=== PATIENT | male | born 1980 | race Caucasian/White ===

== ENCOUNTER 2021-09-21 12:18 | Emergency (ER) | payer SELFPAY ==
[2021-09-21 12:26] VITALS: BP 109/84; PULSE 67; RESP 18; TEMP 36.1; O2SAT 97; BMI 22.9
--- NOTE | 2021-09-21 12:43 | ED.WOUNDLAC ---
HPI - Wound/Laceration General Time Seen by Provider: 12:35 Date Seen: 09/21/21 Chief Complaint: Laceration/Wound Stated Complaint: Deep laceration left forearm Time Seen by Provider: 09/21/21 12:23 Source: patient, family and RN notes reviewed Mode of arrival: ambulatory Limitations: no limitations History of Present Illness HPI narrative: Patient is a very pleasant 40-year-old male with history of up-to-date tetanus who comes to the emergency room with laceration on his left forearm. Patient notes that he was using a razor blade that he had just changed but had been using to cut an old hose when it slipped causing a laceration to the proximal volar forearm. He has no numbness or tingling and he has no change in his strength. He is otherwise a healthy gentleman. Onset (ago): minute(s) Extremity Location: Left: forearm Place: home Patient tetanus UTD: Yes Context: accidental Related Data Home Medications Medication Instructions Recorded Confirmed escitalopram oxalate 10 mg tablet mg 09/21/21 Allergies Allergy/AdvReac Type Severity Reaction Status Date / Time Penicillins Allergy Verified 09/21/21 12:25 Review of Systems Narrative: Denies numbness or tingling or difficulty with strength. Does not have a history of poorly healing wounds. [facility] Medical History (Updated 09/21/21 @ 12:48 by Venus Arguello MD) No significant past medical history Surgical History (Updated 09/21/21 @ 12:37 by Brianne Callejas RN) No significant past surgical history Social History Smoking Status: Current every day smoker How often do you have a drink containing alcohol: 2-3 times a week AUDIT-C Alcohol total score: 3 Non-prescribed substance use: denies use Exam Const: Vital Signs, click to edit/add: Vital Signs - 24 hr 09/21/21 12:26 Temperature 96.9 F L Pulse Rate [Right Pulse Oximeter] 67 Respiratory Rate 18 Blood Pressure [Ri ght Upper Arm] 109/84 Pulse Oximetry 97 Documenting provider has reviewed patient's vital signs: yes Common normals: no apparent distress, oriented x3 and no limitations General appearance: cooperative and comfortable Extremity: Other: There is a 3 cm laceration to the volar forearm proximal medial aspect. This compromises dermis, subcutaneous tissue but does not involve underlying structures. No foreign bodies are noted. 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 Course Course Hospital Course: I do recommend suturing at this time. Will numb mood with 1% lidocaine with epinephrine. Will irrigate this wound as well. No evidence of neurological damage. Vital Signs Vital signs: Initial Vital Signs Temperature 96.9 F L 09/21/21 12:26 Temperature Source Temporal Artery Scan 09/21/21 12:26 Pulse Rate 67 09/21/21 12:26 Pulse Rhythm 09/21/21 12:26 Respiratory Rate 18 09/21/21 12:26 Blood Pressure 109/84 09/21/21 12:26 Blood Pressure Mean 92 09/21/21 12:26 Blood Pressure Position Sitting 09/21/21 12:26 Pulse Oximetry 97 09/21/21 12:26 Oxygen Delivery Method 09/21/21 12:26 Vital Signs Temperature 96.9 F L 09/21/21 12:26 Pulse Rate 67 09/21/21 12:26 Respiratory Rate 18 09/21/21 12:26 Blood Pressure 109/84 09/21/21 12:26 Pulse Oximetry 97 09/21/21 12:26 Temperature 96.9 F L 09/21/21 12:26 Pulse Rate 67 09/21/21 12:26 Respiratory Rate 18 09/21/21 12:26 Blood Pressure 109/84 09/21/21 12:26 Pulse Oximetry 97 09/21/21 12:26 MDM - Wound/Laceration MDM Narrative Medical decision making narrative: 1. Left arm laceration-patient tolerated procedure well. Would recommend suture removal in 10 days time. Watch for signs and symptoms of infection and should he experience erythema, purulent drainage, fever, increasing pain return to the emergency room for evaluation. Do not get wet for 24 hours thereafter may shower. Do not soak arm/ go swimming. Ibuprofen or Tylenol as needed 2. Disposition-patient discharged home in the care of his . Medical Records Attestation: I reviewed the patient's medical records. Discharge Plan Discharge Clinical Impression: Laceration Patient Disposition: Home, Self-Care Condition: Improved Additional Instructions: Do not get wet for 24 hours. Thereafter you may shower but do not soak arm such as you would with swimming or taking a bath. Recommend monitoring for infection and seeking medical attention for redness, drainage, fever. Suture removal in 10 days. Ibuprofen or Tylenol as needed for discomfort. Activity Level: No Restrictions Prescriptions: No Action escitalopram oxalate 10 mg tablet 0RF Label Comments: TAKE ONE TABLET BY MOUTH EVERY DAY Stand Alone Forms: [facility] Info Instructions Procedures Laceration Laceration 1: Pre procedure diagnosis: Left arm laceration Post procedure diagnosis: Left arm laceration repair Site: upper extremity Side (If applicable): left Size (cm): 3 Description: linear Depth: simple, single layer Local Anesthetic: lidocaine 1% and with epi Amount of anesthesia used (mL): 1.5 Skin layer closed with: nylon Size (cm): 4-0 Number of sutures: 4 Technique: simple, interrupted Estimated blood loss (if any): less than 5mls Conclusion: patient tolerated procedure
--- NOTE | 2021-09-21 13:55 | ED.NURSE ---
dr. howell sutured L forearm lac, bacitracin and bandaid applied to L forearm
== END 2021-09-21 13:54 | disposition home or self-care (01) ==
LOC: ED 13:07
PROVIDERS: Emergency Provider Family Medicine
DX: S51.812A Laceration without foreign body of left forearm, initial encounter (principal); W26.9XXA Contact with unspecified sharp object(s), initial encounter
CPT/HCPCS: 12002; 99283

== ENCOUNTER 2023-08-15 14:55 | Outpatient (CLI) | payer BC, SELFPAY | END 2023-08-15 14:56 | disposition home or self-care (01) | PROVIDERS: PCP Family Medicine; Visit Provider Family Medicine | DX: R00.2 Palpitations (principal); Z13.228 Encounter for screening for other metabolic disorders; Z13.220 Encounter for screening for lipoid disorders; Z13.29 Encounter for screening for other suspected endocrine disorder | CPT/HCPCS: 80053; 80061; 84443 ==